=== PATIENT | male | born 1965 | race African-American/Black ===

== ENCOUNTER 2017-02-11 10:58 | Emergency (ER) | payer SELFPAY ==
[~2017-02-11] VITALS: Ht 182.9 cm; Wt 75.0 kg
[~2017-02-11 10:58] MED LIST: CYCL10TA PO; PRED20 PO
[2017-02-11 11:00] VITALS: BP 142/73; PULSE 94; RESP 14; TEMP 98.4; O2SAT 100
[2017-02-11] MEDS ORDERED: IBUP1TAB7 PO (12:11)
[2017-02-11] MEDS ORDERED: AMLO10 PO (12:11)
--- NOTE | 2017-02-11 12:27 | PD ---
HPI Chief Complaint: Back/ Neck Pain or Injury Time Seen by Provider: 12:13 Travel History International Travel<30 days: No Contact w/Intl Traveler<30days: No Traveled to known affect area: No History of Present Illness HPI 51-year-old male presents to the emergency department complaining of right- sided sciatica and mild back pain for 40 years. States that he was in the emergency department couple weeks ago and received some treatments but he has run out. Patient denies fever, chills, loss of bowel or bladder function, trauma, saddle anesthesia. States that this pain is similar to what he has had in the last 40 years and he just wants a refill on his pain medication. Patient does not currently have a primary care physician or pain management. PFSH Past Medical History Hypertension: Yes Medical other: Yes (SIATICA) Tetanus Vaccination: < 5 Years Past Surgical History Other Surgery: Yes (WRIST) Social History Alcohol Use: No Tobacco Use: Yes (1/4 pack a day ) Substance Use: No Allergies-Medications (Allergen,Severity, Reaction): Coded Allergies: No Known Allergies (Unverified Adverse Reaction, Unknown, 02/11/17) Reported Meds & Prescriptions Reported Meds & Active Scripts Active Robaxin (Methocarbamol) 500 Mg Tab 500 Mg PO TID 5 Days Medrol Dosepak (Methylprednisolone) 4 Mg Dspk 4 Mg PO DIRECTED Per Pharmacist direction Reported Ibuprofen 800 Mg Tab 800 Mg PO Q6HR PRN Norvasc (Amlodipine Besylate) 10 Mg Tab 10 Mg PO DAILY Review of Systems Except as stated in HPI: all other systems reviewed are Neg Physical Exam Narrative GENERAL: Well-developed well-nourished in no distress SKIN: Focused skin assessment warm/dry. HEAD: Atraumatic. Normocephalic. CARDIOVASCULAR: Regular rate and rhythm. No murmur appreciated. RESPIRATORY: No accessory muscle use. Clear to auscultation. Breath sounds equal bilaterally. MUSCULOSKELETAL: No obvious deformities. No clubbing. No cyanosis. No edema. BACK: No CVA tenderness. No rash. No point tenderness on palpation of the spine. Mild TTP of the paraspinous muscles lumbar region, neurovascularly intact NEUROLOGICAL: Awake and alert. No obvious cranial nerve deficits. Motor grossly within normal limits. Normal speech. PSYCHIATRIC: Appropriate mood and affect; insight and judgment normal. Data Data Last Documented VS Vital Signs Date Time Temp Pulse Resp B/P (MAP) Pulse Ox O2 Delivery O2 Flow Rate FiO2 02/11/17 12:38 02/11/17 11:00 98.4 94 14 100 Orders Orders Acetamin-Hydrocod 325-5 Mg ([place] 5-325 (02/11/17 12:45) Methylprednisolone So Succ Inj (Solumedr (02/11/17 12:45) Ed Discharge Order (02/11/17 12:34) MDM Medical Decision Making Medical Screen Exam Complete: Yes Emergency Medical Condition: Yes Differential Diagnosis Sciatica versus muscle strain versus muscle sprain Narrative Course 51-year-old male presents to the emergency department complaining of right- sided sciatica and mild back pain for 40 years. States that he was in the emergency department couple weeks ago and received some treatments but he has run out. Patient denies fever, chills, loss of bowel or bladder function, trauma, saddle anesthesia. States that this pain is similar to what he has had in the last 40 years and he just wants a refill on his pain medication. Patient does not currently have a primary care physician or pain management. Vital signs stable Physical exam-mild tenderness along the paraspinous muscles near the SI joints. No midline tenderness. H&P consistent with sciatica. No red flag signs. The patient that refilling chronic pain medication is not appropriate for the emergency department. Advised that patient needs to find a regular physician or pain management for this. I feel that medication and prescribed today was generous and I explained to the patient that he will not get pain medication. Diagnosis Primary Impression: Sciatic leg pain Referrals: [facility] Additional Instructions: Follow-up with her primary care physician within 2 days. Perform light stretches of the lower back and legs, and alternate heat and ice packs. If you develop increased pain, weakness, fever, chills, or bowel or bladder issues, return to the ED for further treatment and evaluation. Follow up with your primary care physician in 2-3 days. Scripts Methocarbamol (Robaxin) 500 Mg Tab 500 MG PO TID for Muscle Spasm for 5 Days, TAB 0 Refills Prov: Rufina Aparicio MD 02/11/17 Methylprednisolone Dosepak (Medrol Dosepak) 4 Mg Dspk 4 MG PO DIRECTED, #1 DSPK 0 Refills Per Pharmacist direction Prov: Rufina Aparicio MD 02/11/17 Disposition: 01 DISCHARGE HOME Condition: Stable Karyna Fan Feb 11, 2017 12:27
[2017-02-11] MEDS ORDERED: MEDR4PAK PO (12:34)
[2017-02-11] MEDS ORDERED: ROBA500T PO (12:34)
[2017-02-11] MEDS ORDERED: ACETAMINOPHEN/HYDROcodone 325 MG/5 MG TAB PO ONE (12:45)
[2017-02-11] MEDS ORDERED: methylPREDNISolone SOD SUCC 125 MG/2 ML VIAL IM ONE (12:45)
== END 2017-02-11 13:52 | disposition home or self-care (01) ==
LOC: NEPK 10:58
DX: M54.31 Sciatica, right side (principal); I10 Essential (primary) hypertension; F17.200 Nicotine dependence, unspecified, uncomplicated
CPT/HCPCS: 96372; 99284; J2930